=== PATIENT | female | born 1980 | race Hispanic/Latino ===

== ENCOUNTER 2018-05-30 18:16 | Emergency (ER) | payer MEDICARE, MEDICAID ==
--- NOTE | 2018-05-30 18:45 | C.PDOC ---
History Of Present Illness 38 y/o female, , hx of anxiety, BIBA accompanied by friends for evaluation of lower back pain and b/l knee pain developed MANAGER SWITCH after sustained mechanical fall. Pt reports she tripped, fell over the curb, landed onto her knee. As per friend, witnessed fall, " fell forward onto her knees and hands". As per pt, pain is worse with movement now over the lower back. Otherwise, Pt denies head injury, LOC, headache, syncope, neck pain, CP, SOB, dyspnea, palpitation, abd. pain, N/V, denies deformity , weakness to b/l lower extremity. Appears comfortable, not in any apparent distress. Time Seen by Provider: 05/30/18 18:26 Chief Complaint (Nursing): Back Pain History Per: Patient History/Exam Limitations: no limitations Onset/Duration Of Symptoms: Other (MANAGER SWITCH) Current Symptoms Are (Timing): Still Present Past Medical History Reviewed: Historical Data, Nursing Documentation, Vital Signs Family History: States: No Known Family Hx Review Of Systems Except As Marked, All Systems Reviewed And Found Negative. Musculoskeletal: Positive for: Back Pain, Other (b/l knee pain; no deformity to the b/l knee) Neurological: Negative for: Weakness, Headache, Other (LOC; syncope ) Physical Exam - Physical Exam Appears: Well, Non-toxic, No Acute Distress Skin: Normal Color, Warm, Dry, No Rash, No Ecchymosis Head: Atraumatic, Normacephalic Eye(s): bilateral: PERRL Nose: No Deformity, No Tenderness Oral Mucosa: Moist Tongue: Normal Appearing Lips: Normal Appearing Throat: No Drooling Neck: Trachea Midline, No Midline Cervical Tenderness, No Paracervical Tenderness, Supple Chest: Symmetrical, No Deformity, No Tenderness Cardiovascular: Rhythm Regular, No Murmur, No JVD Respiratory: No Decreased Breath Sounds, No Accessory Muscle Use, No Stridor, No Wheezing Gastrointestinal/Abdominal: Soft, No Tenderness Back: No CVA Tenderness, No Vertebral Tenderness, Paraspinal Tenderness (lumbar) Extremity: Normal ROM (of B/L UEs and LEs), Tenderness (anterior aspect b/l knee), No Calf Tenderness, Capillary Refill (<2 sec), No Deformity, No Swelling Extremity: Bilateral: Normal Color And Temperature Pulses: Left Femoral: Normal, Right Femoral: Normal, Left Dorsalis Pedis: Normal, Right Dorsalis Pedis: Normal Neurological/Psych: Oriented x3, Normal Speech, Normal Cognition, Normal Motor, Normal Sensation, Normal Reflexes ED Course And Treatment O2 Sat by Pulse Oximetry: 96 Pulse Ox Interpretation: Normal - Other Rad B/L knees X-Ray: Interpreted by Me, Viewed By Me Interpretation: (-) acute fx or dislocation L-spine X-Ray: Interpreted by Me, Viewed By Me Interpretation: (-) acute fx or sublux, (+) hardware in place Progress Note: Impression: trip and fall: b/l knee pain and lower back pain. On re-eval, pt is afebrile, hemodynamically stable. Non-toxic. Ambulatory in ED with stable gait. Head: AT/NC. neck: Suple, (-) midline tenderness. ENT: no acute findings. Abd: Soft, non-tender. FAROM of B/L UEs and LEs, no deformity. Neurologically intact. Imagings review (-) acute fx or dislocation. Syed wrap applied to Right knee. Pt has clinical findings c/w B/L knees contusuion, lumb ar strain. Pt advised. ref. to f/u with PMD in 2 -3 days for re-eval. return if any new changes. Disposition Counseled Patient/Family Regarding: Studies Performed, Diagnosis, Need For Followup, Rx Given - Disposition Referrals: [facility] at [facility] [Outside] Gilberto Gutierrez III, MD [Staff Provider] - Disposition: HOME/ ROUTINE Disposition Time: 19:29 Condition: STABLE Additional Instructions: LIght duty, avoid physical activity for 1 week take pain medication as need Follow up with PMD in 2-3 days for re-evaluation. return to ED if any worsening or new changes. Prescriptions: Methocarbamol [Robaxin] 500 mg PO TID #14 tab traMADol [Ultram] 50 mg PO TID #7 tab Instructions: Lumbar Muscle Strain (DC), Knee Sprain (DC) Forms: [employer] (Sinhala) - Clinical Impression Clinical Impression: Lumbar sprain, Knee contusion - PA / EXECUTIVE DIRECTOR OF NURSING / Resident Statement / has reviewed & agrees with the documentation as recorded. - Scribe Statement The provider has reviewed the documentation as recorded by the Eliza Martin Do All medical record entries made by the Scribe were at my direction and personally dictated by me. I have reviewed the chart and agree that the record accurately reflects my personal performance of the history, physical exam, medical decision making, and the department course for this patient. I have also personally directed, reviewed, and agree with the discharge instructions and disposition.
[2018-05-30 18:47] VITALS: BP 111/77; PULSE 80; TEMP 97.5; O2SAT 96
[2018-05-30 19:49] VITALS: RESP 20
--- NOTE | 2018-05-31 09:38 | RAD ---
Date of service: 05/30/2018 PROCEDURE: Bilateral Knee Radiographs. HISTORY: injury COMPARISON: None. FINDINGS: BONES: No acute fracture or destructive bony lesion identified, bilaterally. JOINTS: There is bilateral medial femorotibial compartment joint space narrowing and lateral femorotibial compartment joint space narrowing at the left knee. Radial compartments appear normal dimension. No osteophyte development or significant cortical sclerosis appreciated throughout. SOFT TISSUES: Right Knee: Normal. Left Knee: Normal. JOINT EFFUSION: Right Knee: None. Left Knee: None. OTHER FINDINGS: None. IMPRESSION: Limited degenerative joint disease bilaterally, left greater than right. No acute fracture or dislocation identified.
--- NOTE | 2018-05-31 09:43 | RAD ---
Date of service: 05/30/2018 PROCEDURE: Radiographs of the Lumbar Spine. HISTORY: injury COMPARISON: No prior. FINDINGS: BONES: Extensive orthopedic hardware obscures the evaluation in all projections. Patient status post thoracolumbar spinal stabilization from at least T6 through L5 posteriorly by bilateral interconnecting rods from L1-S1 via left-sided fusing janet transfixed by sequential transvertebral screws. Further, intervertebral fusion device identified throughout all the lumbar intervertebral disc spaces sparing L5-S1. Significant S shaped thoracolumbar scoliotic deformity identified. No spondylolisthesis or definitive fracture appreciable. DISC SPACES: As above. OTHER FINDINGS: None. IMPRESSION: Extensive thoracolumbar spinal fusion as discussed above with no gross fracture or spondylolisthesis appreciable. Normal anterior-posterior curvature identified. Significant S-shaped thoracolumbar scoliotic deformity identified.
== END 2018-05-30 19:49 | disposition home or self-care (01) ==
LOC: C.ER 18:16
DX: S33.5XXA Sprain of ligaments of lumbar spine, initial encounter (principal); S80.02XA Contusion of left knee, initial encounter; S80.01XA Contusion of right knee, initial encounter; W01.0XXA Fall on same level from slipping, tripping and stumbling without subsequent striking against object, initial encounter; Y92.89 Other specified places as the place of occurrence of the external cause